=== PATIENT | male | born 1975 | race Caucasian/White ===

== ENCOUNTER → 2023-03-19 | Outpatient (CLI) | payer BC, OTHER ==
[2023-03-19 19:58] LABS: Basophils # (A) 0.04 X 10*3/uL (0.00-0.10); Basophils % (A) 0.6 %; Eosinophils # (A) 0.17 X 10*3/uL (0.04-0.35); Eosinophils % (A) 2.4 %; HCT 48.8 % (39.6-50.0); HGB 16.3 g/dL (13.0-17.0); Lymphocytes # (A) 2.64 X 10*3/uL (0.90-5.00); Lymphocytes % (A) 37.8 %; MCH 29.3 pg (27.0-32.0); MCHC 33.4 g/dL (32.0-37.0); MCV 87.8 FL (80.0-97.0); Monocytes % (A) 7.2 %; NRBC Per 100 WBC 0 X 10*3/uL (0.00-0.01); Neutrophils # (A) 3.61 X 10*3/uL (1.80-7.70); Neutrophils % (A) 51.7 %; Platelet Count 254 X 10*3/uL (140-440); RBC 5.56 X 10*6/uL (4.40-5.60); RDW 12.7 % (11.5-14.5); WBC 6.98 X 10*3/uL (4.50-10.00)
[2023-03-19 20:20] LABS: BUN/Creat Ratio 18.78 Ratio (12.00-20.00); Blood Urea Nitrogen 16.9 mg/dL (9.0-27.0); Calcium 9.7 mg/dL (8.7-10.3); Carbon Dioxide 22.3 mmol/L (21.6-31.8); Chloride 104 mmol/L (96-109); Glucose 90 mg/dL (70-110); Potassium 4.4 mmol/L (3.5-5.5); Sodium 138 mmol/L (135-145)
== END | disposition home or self-care (01) ==
LOC: LABPAT 13:04
PROVIDERS: ATTEND Orthopaedic Surgery Hand Surgery
DX: Z01.812 Encounter for preprocedural laboratory examination (principal); S62.603A Fracture of unspecified phalanx of left middle finger, initial encounter for closed fracture; X58.XXXA Exposure to other specified factors, initial encounter
CPT/HCPCS: 36415; 80048; 85025

== ENCOUNTER 2023-03-22 11:03 | Day surgery (SDC) | payer BC, OTHER ==
--- NOTE | 2023-03-21 19:29 | P.HPOR ---
History of Present Illness H&P Date: 03/21/23 Subjective: This is a 47 year old male that presents today for initial evaluation regarding a left small finger injury that occurred on 03/13/2023 when he was working on a garage door spring and the spring dislodged and hit his left small finger. He noticed immediate deformity and an open wound to the digit. He was seen at [facility] where his wounds were irrigated and closed and closed reduction was attempted in the emergency room. He is placed in a splint, which he has been in since the injury. 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 He denies any other areas of pain or injury. Physical Examination: LUE: AIN/PIN/Radial/Ulnar/Median motor intact. Radial/Ulnar/Median SILT. 2+/4 Radial/Ulnar pulses palpated. 5/5 APB, 5/5 FDI. 3cm dorsal laceration over radial aspect of small finger PIP joint with sutures intact. FDP/FDS intact against resistance. Imaging: X-Rays of the left hand three-view taking office today demonstrate a comminuted intra-articular small finger middle phalanx base fracture dislocation. Impression: 1.) Left small finger intra-articular middle phalanx base fracture dislocation. Plan: Diagnosis and treatment options were discussed with the patient. I recommend surgical intervention for his injury due to the unstable and intra-articular nature of his fracture. He is scheduled for a left small finger middle phalanx fracture open reduction internal fixation. Risks and benefits of surgery including bleeding, infection, damage to surrounding tissue, need for further surgery, residual numbness were discussed and the patient wished to go forward with surgery. The patient was agreeable with this plan. New dressing was applied to the digit in office. CC: Juvencio Quintanilla DO -Fan Dale DO Orthopedic Hand/Upper Extremity Surgeon Past Medical History Past Medical History: Osteoarthritis (OA) Additional Past Medical History / Comment(s): seasonal allergies, injured left baby finger fixing garage door last Sat.-has some current stitches History of Any Multi-Drug Resistant Organisms: None Reported Past Surgical History: Orthopedic Surgery Additional Past Surgical History / Comment(s): colonoscopy, right knee arthroscopy, wisdom teeth removed Past Anesthesia/Blood Transfusion Reactions: Postoperative Nausea & Vomiting (PONV) Additional Past Anesthesia/Blood Transfusion Reaction / Comment(s): very nauseated after colonoscopy Smoking Status: Former smoker - Past Family History Mother Family Medical History: No Reported History Medications and Allergies Home Medications Medication Instructions Recorded Confirmed Type Ibuprofen [Motrin] 600 mg PO QAM 03/20/23 03/20/23 History Levocetirizine Dihydrochloride 5 mg PO DAILY 03/20/23 03/20/23 History [Xyzal] Allergies Allergy/AdvReac Type Severity Reaction Status Date / Time No Known Allergies Allergy Verified 03/20/23 14:48 Physical Examination Osteopathic Statement: *. No significant issues noted on an osteopathic structural exam other than those noted in the History and Physical/Consult.
[2023-03-22] MEDS ORDERED: ONDANSETRON 4 MG/2 ML VIAL IVP ONE (11:13)
[2023-03-22] MEDS ORDERED: DEXAMETHASONE SOD PHOSPHATE 4 MG/ML 1 ML VIAL IV ONE (11:13)
[2023-03-22] MEDS ORDERED: HYDROmorphone 0.5 MG/0.5 ML SYRINGE IVP PRN (11:13)
[2023-03-22] MEDS ORDERED: LACTATED RINGERS 1,000 ML IV SCH (11:13)
[2023-03-22 11:33] VITALS: RESP 16
[2023-03-22] MEDS ORDERED: SUCCINYLCHOLINE CHLORIDE 200 MG/10 ML VIAL IV ONE (12:02)
[2023-03-22] MEDS ORDERED: MIDAZOLAM 2 MG/2 ML VIAL ONE (12:02)
[2023-03-22] MEDS ORDERED: fentaNYL (PF) 50 MCG/ML 2 ML AMP ONE (12:02)
[2023-03-22] MEDS ORDERED: PROPOFOL 10 MG/ML 20 ML VIAL IV ONE (12:02)
[2023-03-22] MEDS ORDERED: LIDOCAINE 1% INJ 10MG/ML (20 ML MDV) ONE (12:02)
[2023-03-22] MEDS ORDERED: PHENYLEPHRINE 10 MG/ML VIAL ONE (12:02)
[2023-03-22] MEDS ORDERED: BUPIVACAINE (PF) 0.5% 30 ML VIAL SQ ONE ×2 (12:29→13:44)
[2023-03-22] MEDS ORDERED: BACITRACIN ZINC 500 UNIT/GM OINT 28.4 GM TUBE TOPICAL ONE (13:40)
--- NOTE | 2023-03-22 14:18 | P.OP ---
Date of Procedure: 03/22/23 Preoperative Diagnosis: Left small finger intra-articular middle phalanx base fracture Postoperative Diagnosis: Left small finger intra-articular middle phalanx base fracture Procedure(s) Performed: Open reduction internal fixation of left small finger intra-articular middle phalanx base fracture Implants: 1.) [place] 1.2mm screw, 10mm 2,) [place] 1.7mm screw, 12mm Anesthesia: GETA Surgeon: Fan Dale Estimated Blood Loss (ml): 5 Pathology: none sent Condition: stable Disposition: PACU Description of Procedure: This is a 47 year old male who who sustained a left small finger intra-articular middle phalanx base fracture that presents today for surgical intervention. Risks and benefits of surgery were discussed with the patient including bleeding, damage to surrounding tissue, infection, need for further surgery as well as risks of anesthesia including pulmonary embolism and even and the patient wished to proceed with surgical intervention. The patient was seen in the pre-operative area by myself. Consent and H&P were completed and updated. The correct extremity was marked in the pre-operative area by myself and all other questions were answered. Operative Narrative: The patient was brought to the operating room by the department of anesthesia. They remained on the portable stretcher and a rolling hand table was brought to the side of the operative extremity. Pre-operative time out was performed indicating the correct patient, procedure and laterality. All in the room agreed. Pre-operative antibiotics were given prior to skin incision. The patient was then drifted off to sleep by the department of anesthesia. A nonsterile tourniquet was then applied to the operative extremity and the left upper extremity was then prepped and draped in normal sterile fashion. The operative extremity was the exsanguinated with an esmarch bandage and the tourniquet was inflated to 250mmHg. Sutures were removed from the site of the laceration that was previously repaired in the ED. The dorsal laceration was then opened with blunt tenotomy scissors. There was direct communication down to the fracture site through the radial aspect of the fracture. The wound was irrigated with normal saline and Turner tip suction was used to clean out fracture hematoma, and a small interposed comminuted piece of bone. Scalpel was used to freshen the fracture edges from surrounding fibrous tissue. The dorsal sensory branch of the radial digital nerve appeared to be very erythematous and stretched but was found to be intact. FDP and terminal extensor tendon was identified and found to be intact. After debridement of the fracture site a point to point clamp was then used to reduce the radial condyle to the rest of the middle phalanx. Mini-C-arm confirmed anatomic reduction of the joint and articular surfaces on both the AP and lateral views. The cascade of digits was checked and matched his contralateral hand intra-operatively. A drill for a 1.2mm angel cortical screw was drilled across the fracture fragment and a size 10mm 1.2mm screw was inserted across the fracture site. Proximally a 1.7mm angel cortical screw was drilled and filled with appropriate length confirmed on imaging. Pointed reducti on clamp was then released and no movement of the fracture site occurred. Final imaging was taken to confirm anatomic reduction of the articular surface and appropriate screw lengths. The wound was then irrigated and closure was performed with 4-0 nylon suture. Digital nerve block with 10cc's of 0.5% Bupivicaine was injected into the finger. Sterile dressing with 4x4s, adaptic, bacitracin and a volar splint was applied. Tourniquet was let down and the hand had immediate perfusion. The patient was then woken by the department of anesthesia and transferred to PACU in stable condition. Saqib MADDOX was present for the case to assist in fracture reduction and hardware placement. Fan Dale D.O. Orthopedic Hand/Upper Extremity Surgeon
[2023-03-22 14:45] VITALS: TEMP 97.7
[2023-03-22 15:33] VITALS: BP 120/74; PULSE 70
== END 2023-03-22 15:36 | disposition home or self-care (01) ==
LOC: OR 11:03
PROVIDERS: ATTEND Orthopaedic Surgery Hand Surgery
DX: S62.603A Fracture of unspecified phalanx of left middle finger, initial encounter for closed fracture (principal); M19.90 Unspecified osteoarthritis, unspecified site; J30.2 Other seasonal allergic rhinitis; Z87.891 Personal history of nicotine dependence; Z79.899 Other long term (current) drug therapy; Z96.651 Presence of right artificial knee joint; X58.XXXA Exposure to other specified factors, initial encounter
CPT/HCPCS: 26735; C1713; J2250; J0330; J1100; J0690; J2405; J2001; J3010; J2371; J2704; J0665